=== PATIENT | male | born 1950 | race Caucasian/White ===

== ENCOUNTER 2021-01-15 13:32 | Emergency (ER) | payer MEDICARE, BC ==
[~2021-01-15] VITALS: Ht 175.3 cm; Wt 84.1 kg
[2021-01-15 14:01] LABS: BASO % 0.1 % (0.0-2.0); EOS % 0.3 % (0-4.0); GRAN # 6.9 (1.4-6.5); GRAN % 77.1 % (42.2-75.2); HEMATOCRIT 44.2 % (42.0-52.0); HEMOGLOBIN 14.8 g/dl (13.5-18.0); LYMPH # 1.2 (1.2-3.4); LYMPH % 13.9 % (20.0-51.0); MEAN CELL VOLUME 86 fl (80.0-100.0); MEAN CORPUSCULAR HEMOGLOBIN 29 pg (27.0-31.0); MEAN CORPUSCULAR HGB CONC 34 g/dl (33.0-37.0); MEAN PLATELET VOLUME 9.2 fl (7.4-10.4); MONO # 0.7 (0.1-0.6); PLATELET COUNT 358 K/mm3 (130-400); RED BLOOD COUNT 5.15 M/mm3 (4.20-5.60); REDCELL DISTRIBUTION WIDTH-CV 13.3 % (11.5-14.5)
[2021-01-15 14:06] LABS: ALBUMIN 4.3 gm/dL (3.5-5.0); BILIRUBIN,TOTAL 0.8 mg/dL (0.0-1.0); CALCIUM 9.8 mg/dL (8.4-10.2); CREATININE, serum 1.18 (0.66-1.25); POTASSIUM 4.4 mmol/L (3.4-5.0); TOTAL PROTEIN 7.5 gm/dL (6.4-8.2)
[2021-01-15 14:17] LABS: TROPONIN-I 0.021 ng/mL (0.000-0.035)
[2021-01-15 14:22] LABS: INR 1.1 (0.8-3.0); PROTHROMBIN TIME 12.1 SECONDS (9.7-12.8)
[2021-01-15 14:34] LABS: COLLECTION METHOD CLEAN CATCH
[2021-01-15 14:41] LABS: MUCOUS Present /lpf; PH 5 (5-8); SQUAMOUS EPITHELIAL None Seen /hpf; URINE APPEARANCE Clear; URINE BACTERIA None Seen /hpf; URINE BILIRUBIN Negative (NEGATIVE); URINE BLOOD Negative (NEGATIVE); URINE COLOR Yellow; URINE GLUCOSE 3+ (NEGATIVE); URINE KETONE 2+ (NEGATIVE); URINE LEUKOCYTE ESTERASE Negative (NEGATIVE); URINE NITRATE Negative (NEGATIVE); URINE PROTEIN(semi-quant) Negative (NEGATIVE); URINE RBC 0-2 /hpf; URINE UROBILINOGEN Negative (NEGATIVE)
[2021-01-15 14:59] VITALS: BP 116/71; PULSE 85
== END 2021-01-15 18:48 | disposition left against medical advice (07) ==
LOC: COL.ER 13:32
PROVIDERS: Emergency Medicine
DX: E11.65 Type 2 diabetes mellitus with hyperglycemia (principal); G91.9 Hydrocephalus, unspecified; R41.82 Altered mental status, unspecified; I10 Essential (primary) hypertension; F03.90 Unspecified dementia, unspecified severity, without behavioral disturbance, psychotic disturbance, mood disturbance, and anxiety; G20 Parkinson's disease; Z88.0 Allergy status to penicillin
CPT/HCPCS: J1815; J7040

== ENCOUNTER 2021-04-15 14:00 | Inpatient (IN) | payer MEDICARE, BC ==
[~2021-04-15] VITALS: Ht 172.7 cm; Wt 75.5 kg
[2021-04-15 15:01] LABS: HEMATOCRIT 39.1 % (42.0-52.0); HEMOGLOBIN 13.1 g/dl (13.5-18.0); MEAN CELL VOLUME 83 fl (80.0-100.0); MEAN CORPUSCULAR HEMOGLOBIN 28 pg (27.0-31.0); MEAN CORPUSCULAR HGB CONC 34 g/dl (33.0-37.0); PLATELET COUNT 160 K/mm3 (130-400); RED BLOOD COUNT 4.71 M/mm3 (4.20-5.60); REDCELL DISTRIBUTION WIDTH-CV 13.4 % (11.5-14.5)
[2021-04-15 15:06] LABS: ALBUMIN 4.1 gm/dL (3.5-5.0); BILIRUBIN,TOTAL 0.8 mg/dL (0.0-1.0); CREATININE, serum 1.14 (0.66-1.25); POTASSIUM 4.2 mmol/L (3.4-5.0); TOTAL PROTEIN 7.2 gm/dL (6.4-8.2)
[2021-04-15 15:14] LABS: COLLECTION METHOD CLEAN CATCH
[2021-04-15] MEDS ORDERED: NOVOLOG 100U100 U/M1 SQ ×2 (15:16→15:17)
[2021-04-15 15:23] LABS: MUCOUS Present /lpf; PH 5 (5-8); SQUAMOUS EPITHELIAL 0-2 /hpf; URINE APPEARANCE Hazy; URINE BACTERIA Rare /hpf; URINE BILIRUBIN Negative (NEGATIVE); URINE BLOOD Negative (NEGATIVE); URINE COLOR Yellow; URINE GLUCOSE 3+ (NEGATIVE); URINE KETONE 1+ (NEGATIVE); URINE LEUKOCYTE ESTERASE Negative (NEGATIVE); URINE NITRATE Negative (NEGATIVE); URINE PROTEIN(semi-quant) 2+ (NEGATIVE); URINE RBC 0-2 /hpf; URINE UROBILINOGEN Negative (NEGATIVE)
[2021-04-15 16:10] LABS: LYMPHOCYTE 12 % (20.0-51.0); NEUTROPHILS 82 % (42.0-75.2)
[2021-04-15 16:16] LABS: PLATELET ESTIMATE NORMAL (NORMAL)
[2021-04-16] VITALS (7 sets, daily range): BP systolic 123–161; BP diastolic 64–81; PULSE 61–84; TEMP 97.8–99.1
--- NOTE | 2021-04-16 04:32 | NUR ---
PT RECEIVED ON FLOOR. UNABLE TO COMPLETE MED REC DUE TO PATIENT CONFUSION. HAVE DISCUSSED WITH ER NURSE, TO BRING MED LIST TOMORROW. WILL PASS ON TO DAY SHIFT.
--- NOTE | 2021-04-16 06:33 | NUR ---
PT ASLEEP CURRENTLY. BLOOD GLUCOSE MANAGED WITH INSULIN PER ORDERS. PT HAS CLEAR LUNG SOUNDS, ON ROOM AIR CURRENTLY. PT HAS SLIGHTLY ELEVATED BLOOD PRESSURE, WITHIN TRENDS FROM PREVIOUS VITAL SIGN ASSESSMENTS. PT HAS REDDENED BUTTOCKS, BLANCHABLE UPON ADMISSION ASSESSMENT. PT ABLE TO TURN SELF. PT HAS SKIN TEAR THAT IS SCABBED OVER ON LEFT ARM. A FEW SKIN TEARS, SCABBED ON LEGS. PT ANTIBIOTICS STARTED AND FLUIDS HUNG THIS SHIFT.
[2021-04-16 07:08] LABS: HEMATOCRIT 38.5 % (42.0-52.0); HEMOGLOBIN 12.6 g/dl (13.5-18.0); MEAN CELL VOLUME 86 fl (80.0-100.0); MEAN CORPUSCULAR HEMOGLOBIN 28 pg (27.0-31.0); MEAN CORPUSCULAR HGB CONC 33 g/dl (33.0-37.0); MEAN PLATELET VOLUME 10.1 fl (7.4-10.4); PLATELET COUNT 146 K/mm3 (130-400); RED BLOOD COUNT 4.46 M/mm3 (4.20-5.60); REDCELL DISTRIBUTION WIDTH-CV 13.6 % (11.5-14.5)
--- NOTE | 2021-04-16 07:25 | NUR ---
multiple attempts to reach Dr. Atkins. Voicemail left, unable to reach consult.
[2021-04-16 07:27] LABS: CALCIUM 8.4 mg/dL (8.4-10.2); CREATININE, serum 1.08 (0.66-1.25); POTASSIUM 3.8 mmol/L (3.4-5.0)
--- NOTE | 2021-04-16 08:00 | NUR ---
Pt awake upon entry, in bed. Assisted Pt to bedside commode. No C/O pain at this time. Shift assessment complete, left Pt call light in reach, in bed.
[2021-04-16 08:33] LABS: BAND 14 % (0-10); LYMPHOCYTE 15 % (20.0-51.0); NEUTROPHILS 64 % (42.0-75.2)
[2021-04-16 08:34] LABS: PLATELET ESTIMATE NORMAL (NORMAL)
--- NOTE | 2021-04-16 14:46 | NUR ---
fruit and vegetable factory worker contacted patient due to patient's confusion to complete intake assessment. Patient lives at home with his Willow ([phone]) in [place]. reports that due to the patients confusion and falls at home that she provides all of the patients activities of daily living for him and that he does not utilize any medical equipment. also reports that the patient is legally blind. [facility] [place] [facility]. Reports that he does have a DPOA-HC established through the PA and will bring it by on Monday 04/16, however would like a "new one for [facility]". *Discharge plan: Social will need to follow.*
[2021-04-17 03:08] VITALS: BP 131/61; PULSE 63; TEMP 97.9
--- NOTE | 2021-04-17 06:09 | NUR ---
PT REMAINS A/OX1 THIS NIGHT, PT REQUIRES CONSTANT REORIENTATION AND GUIDANCE, VSS, 02 ROOM AIR. PT HAS REMAINED AFEBRILE, RFLACC PAIN NOT SCORING, NO DIAHRREA THIS NIGHT. INSULIN ADMINISTERED ORDERED. PT REMAINS INCONTINENT OF URINE, PT CLEANED,DRIED AND BED LINENS CHANGED. ALL NEEDS MET. BED LOW, BED ALARM ON.
[2021-04-17 07:46] LABS: GRAN # 4.6 (1.4-6.5); GRAN % 82.1 % (42.2-75.2); HEMOGLOBIN 12.4 g/dl (13.5-18.0); LYMPH # 0.7 (1.2-3.4); LYMPH % 12.2 % (20.0-51.0); MEAN CELL VOLUME 85 fl (80.0-100.0); MEAN CORPUSCULAR HEMOGLOBIN 29 pg (27.0-31.0); MEAN CORPUSCULAR HGB CONC 34 g/dl (33.0-37.0); MONO # 0.3 (0.1-0.6); MONO % 5.2 % (1.7-9.3); PLATELET COUNT 149 K/mm3 (130-400); RED BLOOD COUNT 4.34 M/mm3 (4.20-5.60); REDCELL DISTRIBUTION WIDTH-CV 13.4 % (11.5-14.5)
[2021-04-17 08:07] LABS: CALCIUM 8.4 mg/dL (8.4-10.2); CREATININE, serum 0.96 (0.66-1.25); POTASSIUM 3.9 mmol/L (3.4-5.0)
[2021-04-17 09:28] VITALS: BP 123/58; PULSE 76; TEMP 98.3
--- NOTE | 2021-04-17 10:05 | NUR ---
Pt. progressing w/ plan of care. Pt. reports he is not hungry this AM. Pt. also reporting he has generalized pain. Pt. was incontinent, pt. changed by this teletypewriter installer and LUBNA Calvo. Pt. feels warm but no fever. Bed alarm on, call light in reach.
[2021-04-17 12:01] VITALS: BP 138/68; PULSE 77; TEMP 98.7
[2021-04-17 16:14] VITALS: BP 123/57; PULSE 73; TEMP 98
[2021-04-17] MEDS ORDERED: MELATIN 3 MG-11 TAB PO (18:16)
[2021-04-17] MEDS ORDERED: NOVOLOG 100U100 U/M1 SQ (18:16)
--- NOTE | 2021-04-17 19:20 | NUR ---
Plan for pt. to go to [facility] in [place]. Pt.'s Mary Ann notified on the telephone and verbal consent granted w/ this RN and RN table games supervisor Theo. Mary Ann aware pt. will be at [facility] in room 405. Mary Ann requesting the RN taking over to call her this evening. This RN provided report to LEELEE Lopez from [facility]. All questions answered. The pt.'s ride to [facility] is not yet here. Report also provided to [place] [facility]entz while we wait for pt to be picked up.
--- NOTE | 2021-04-17 19:56 | NUR ---
pt transported to [facility] at approximately 1940 via stretcher with EMT. EMT provided report by previous shift nurse. Pt transported with belongings and INT still in place to . All relevant questions and concerns answered.
== END 2021-04-17 19:40 | disposition short-term general hospital (02) | DRG 56 ==
LOC: COL.ER 14:00 → MEDICAL 04-16 02:11
PROVIDERS: Personal Emergency Response Attendant; Student in an Organized Health Care Education/Training Program; ADMIT Family Medicine
DX: G91.9 Hydrocephalus, unspecified (principal); U07.1 COVID-19; Z79.4 Long term (current) use of insulin; R41.0 Disorientation, unspecified; E11.65 Type 2 diabetes mellitus with hyperglycemia; Z95.0 Presence of cardiac pacemaker
CPT/HCPCS: 99222; 99232-AI; 99233-AI; 99239; J0696; J1100; J1650; J1815; J2060; J7030